=== PATIENT | female | born 1955 | race Caucasian/White ===

== ENCOUNTER 2019-01-06 07:59 | Day surgery (SDC) | payer MEDICAID ==
[~2019-01-06] VITALS: Ht 157.5 cm; Wt 68.9 kg
[2019-01-06] MEDS ORDERED: DEXT 5%/0.45% NACL 1000ML 1,000 ML IV SCH (09:00)
[2019-01-06] MEDS ORDERED: LIDOCAINE HCL 1% 20ML VIAL (Pyxis) INJ ONE (10:25)
[2019-01-06] MEDS ORDERED: MIDAZOLAM HCL 5 MG/5 ML VIAL ONE (10:25)
[2019-01-06] MEDS ORDERED: PROPOFOL 200MG/20ML VIAL IV ONE (10:25)
[2019-01-06] MEDS ORDERED: SUCCINYLCHOLINE CHLORIDE 200MG/10ML IV ONE (10:25)
[2019-01-06] MEDS ORDERED: ONDANSETRON HCL 4MG/2ML INJ IV PRN (11:00)
[2019-01-06] MEDS ORDERED: HYDROMORPHONE HCL/PF 2MG/ML CPJ IV PRN (11:00)
[2019-01-06] MEDS ORDERED: DEXT 5%/0.9% NACL 1,000 ML IV NR (11:15)
[2019-01-06] MEDS ORDERED: MULT-1116 PO (11:48)
[2019-01-06] MEDS ORDERED: METF500T PO (11:48)
[2019-01-06] MEDS ORDERED: GABA-531 PO (11:48)
[2019-01-06] MEDS ORDERED: FERR325T6 PO (11:48)
[2019-01-06] MEDS ORDERED: GLIP5TAB12 PO (11:48)
== END 2019-01-06 12:30 | disposition home or self-care (01) ==
LOC: OR 07:59
PROVIDERS: ATTEND Internal Medicine Gastroenterology
DX: I85.00 Esophageal varices without bleeding (principal); K74.69 Other cirrhosis of liver; K44.9 Diaphragmatic hernia without obstruction or gangrene; K31.9 Disease of stomach and duodenum, unspecified; K76.6 Portal hypertension; E11.9 Type 2 diabetes mellitus without complications; D64.9 Anemia, unspecified; Z79.899 Other long term (current) drug therapy; Z79.84 Long term (current) use of oral hypoglycemic drugs
CPT/HCPCS: 43244; 82962; 93005; J0330; J2250; J2704; J3490; J2405

== ENCOUNTER 2019-08-25 07:51 | Day surgery (SDC) | payer MEDICAID ==
[~2019-08-25] VITALS: Ht 154.9 cm; Wt 72.6 kg
[~2019-08-25 07:51] MED LIST: FERR325T6 PO; GABA-531 PO; GLIP5TAB12 PO; METF500T PO; MULT-1116 PO
[2019-08-25 08:41] LABS: BASOPHILS % 0.6 % (0.0-2.0); EOSINOPHILS % 3.3 % (0.0-5.0); HEMATOCRIT. 37.7 % (36.0-48.0); HEMOGLOBIN. 12.6 g/dL (12.0-16.0); LYMPHOCYTES % 19.6 % (20.0-50.0); MEAN CORPUSCULAR HEMOGLOBIN 30.5 pg (28.0-32.0); MEAN CORPUSCULAR VOLUME 91.2 fL (81.0-99.0); MEAN PLATELET VOLUME 8.4 fl (7.4-10.4); MONOCYTES % 11.8 % (2.0-8.0); NEUTROPHILS % 64.7 % (40.0-76.0); PLATELET 167 x1000/uL (130-400); RED BLOOD CELL COUNT 4.13 mill/uL (4.2-5.4); RED CELL DISTRIBUTION WIDTH 15.3 % (11.6-14.6)
[2019-08-25 08:48] LABS: CHLORIDE 107 mEq/L (98-107)
[2019-08-25] MEDS ORDERED: LACTATED RINGERS 1,000 ML IV SCH (09:15)
[2019-08-25] MEDS ORDERED: METF-416 PO (09:45)
[2019-08-25] MEDS ORDERED: CHOL200077 PO (09:45)
[2019-08-25] MEDS ORDERED: ATOR40TA70 PO (09:45)
[2019-08-25] MEDS ORDERED: PROP10TA10 PO (09:45)
[2019-08-25] MEDS ORDERED: MIDAZOLAM HCL 5 MG/5 ML VIAL ONE (11:28)
[2019-08-25] MEDS ORDERED: PROPOFOL 200MG/20ML VIAL IV ONE (11:29)
[2019-08-25] MEDS ORDERED: SUCCINYLCHOLINE CHLORIDE 200MG/10ML IV ONE (11:30)
[2019-08-25] MEDS ORDERED: FLUMAZENIL 0.1 MG/ML 5ML VIAL IV ONE (11:44)
== END 2019-08-25 14:00 | disposition home or self-care (01) ==
LOC: OR 07:51
PROVIDERS: ATTEND Internal Medicine Gastroenterology
DX: I85.00 Esophageal varices without bleeding (principal); K74.60 Unspecified cirrhosis of liver; K44.9 Diaphragmatic hernia without obstruction or gangrene; K31.9 Disease of stomach and duodenum, unspecified; E11.9 Type 2 diabetes mellitus without complications; E78.5 Hyperlipidemia, unspecified; I10 Essential (primary) hypertension; Z79.899 Other long term (current) drug therapy; Z98.890 Other specified postprocedural states; Z79.84 Long term (current) use of oral hypoglycemic drugs
CPT/HCPCS: 36415; 43244; 80048; 85025; 93005; J0330; J2250; J2704; J3490